=== PATIENT | female | born 2000 | race African-American/Black ===

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

== ENCOUNTER 2021-09-10 11:56 | Emergency (ER) | payer OTHER ==
[~2021-09-10 11:56] MED LIST: PERCOCET 5-3251 EACH PO
[2021-09-10] MEDS ORDERED: VENTOLIN HFA IN18 GM INH (17:47)
[2021-09-10] MEDS ORDERED: ONDANSETRON ODT4 MG PO (17:47)
[2021-09-10] MEDS ORDERED: MEDROL 4MG DOSEP4 MG PO (17:47)
== END 2021-09-10 18:34 | disposition home or self-care (01) ==
LOC: FER 11:56
DX: U07.1 COVID-19 (principal)
CPT/HCPCS: 99283; J1100